=== PATIENT | male | born 1945 | race Caucasian/White ===

== ENCOUNTER 2017-05-22 17:20 | Inpatient (IN) | payer OTHER ==
--- NOTE | ~2017-05-22 | EGD ---
EGD REPORT [facility] [address] [place] [address] NAME: JUVENTINO CORDON : [birth year] STATUS : DIS IN PAT#: [id number] AGE: 71 ADM/REG DATE : 05/22/17 MR#: [id number] REPORT SERV DATE: 05/24/17 DICTATED BY: TEJA VIVAS DATE: 05/24/17 REPORT STATUS : Draft [facility]ANSCRIBED BY: [facility] DATE: 05/24/17 Endoscopy Center Patient Name: Juventino Cordon Date of : 1945 Attending MD: TEJA JIMENEZ MD Procedure Date No Time: 05/24/2017 Procedure: Colonoscopy Indications: Melena, Iron deficiency anemia Referring MD: Juanpablo Andrew Medicines: Monitored Anesthesia Care Complications: No immediate complications. Estimated blood loss: None. Procedure: Pre-Anesthesia Assessment: - ASA Grade Assessment: III - A patient with severe systemic disease. After I obtained informed consent, the scope was passed under direct vision. Throughout the procedure, the patient's blood pressure, pulse, and oxygen saturations were monitored continuously. The CF [id number] was introduced through the anus and advanced to the cecum, identified by appendiceal orifice and ileocecal valve. The colonoscopy was performed without difficulty. The patient tolerated the procedure well. The quality of the bowel preparation was fair. Findings: The perianal and digital rectal examinations were normal. Pertinent negatives include no palpable rectal lesions. Non-bleeding internal hemorrhoids were found during retroflexion and were small. The exam was otherwise without abnormality. Unable to cannulate ileum. No melena seen - only brown stool. Impression: - Non-bleeding internal hemorrhoids. - The examination was otherwise normal with no dark stool or bleeding seen. - Brown stool with no blood seen. Recommendation: - [facility]. - Return to GI clinic in 4 weeks. Procedure Code(s): --- Professional --- 26046, Colonoscopy, flexible, proximal to splenic flexure; diagnostic, with or without collection of specimen(s) by brushing or washing, with or without colon decompression (separate procedure) EGD REPORT [facility] [address] [place], [place] [address]. [address] NAME: JUVENTINO CORDON : [birth year] STATUS : DIS IN PAT#: [id number] AGE: 71 ADM/REG DATE : 05/22/17 MR#: [id number] REPORT SERV DATE: 05/24/17 DICTATED BY: TEJA VIVAS DATE: 05/24/17 REPORT STATUS : Draft TRANSCRIBED BY: [employer] DATE: 05/24/17 Diagnosis Code(s): --- Professional --- K64.8, Other hemorrhoids K92.1, Melena D50.9, Iron deficiency anemia, unspecified CPT copyright 2013 [employer]. All rights reserved. The codes documented in this report are preliminary and upon motorcycle designer review may be revised to meet current compliance requirements. Teja Jimenez MD TEJA JIMENEZ MD 05/24/2017 9:16 AM This report has been signed electronically. Number of Addenda: 0 Note Initiated On: 05/24/2017 8:21 AM Scope Withdrawal Time 0 hours 11 minutes 37 seconds [address] [facility] [place] [address]
--- NOTE | ~2017-05-22 | CN ---
Consultation Report [facility] [address] [place]. [address] NAME: KRYSTLE CORDON : [birth year] STATUS : DIS IN PAT#: [id number] AGE: 71 ADM/REG DATE : 05/22/17 MR#: [id number] REPORT SERV DATE: 05/22/17 DICTATED BY: REJI PEMBERTON DATE: 05/22/17 REPORT STATUS : Draft TRANSCRIBED BY: MODL DATE: 05/22/17 GI CONSULTATION DATE OF CONSULTATION: 05/22/2017 GASTROENTOLOGIST: Ar West M.D. REASON FOR CONSULTATION: Severe anemia. HISTORY AND PHYSICAL: Mr. Cordon is a 71-year-old gentleman who presented to the emergency room because of extreme shortness of breath and chest pain on walking. When he presented here, he had a hemoglobin of 7.9 with hematocrit of 25.5, MCV low at 74.6, and a platelet count of 284,000. INR was 1.2. His BMP showed a BUN of 20 with a creatinine of 1.48. We were consulted because of this reason. On going through his hemoglobin and hematocrit in October of last year, it was 10.9 and 32.7. At that time, he had undergone a GI evaluation by Dr. West and had an EGD and colonoscopy on 11/01/2016. EGD revealed irregular Z-line at 49 cm, small hiatal hernia, couple of nodules without bleeding in the gastric fundus. No obvious site of GI bleeding was found. Colonoscopy was done on the same day which revealed diverticulosis of the sigmoid and hemorrhoids. The patient was seen by Dr. Hess for chest pain and also elevated troponin. He does have a history of coronary artery disease with stents put in, in the past. He tells me that he underwent a cardiac catheterization which showed stent and vessels to be clear but he had what he describes as a leaky valve. He also had an echocardiogram which showed aortic valve to be calcified, there was left ventricular systolic function which appeared low normal at 50%. There was moderate eccentric mitral regurgitation and some jaqa-dv-xovrifre aortic stenosis. I do not have the report of the CAT, but per patient, the vessels and stent were clear. The patient after the endoscopy was suppose to follow up with Dr. West as an outpatient, and I am going through his chart in the office and it appears that there was no office follow up. The patient tells me that he has been having dark stools intermittently on and off for a while now, and he denies use of any iron. HOME MEDICATIONS: Lipitor, Wellbutrin, Coreg, Nexium, Lasix, Aleve, potassium, Aldactone, and Flomax. ALLERGIES: NONE. HABITS: Does not smoke or drink. FAMILY HISTORY: Noncontributory from a GI standpoint. MEDICAL HISTORY: 1. Coronary artery disease. 2. Hypertension. Consultation Report [address] [place]. [address] NAME: KRYSTLE CORDON : [birth year] STATUS : DIS IN PAT#: [id number] AGE: 71 ADM/REG DATE : 05/22/17 MR#: [id number] REPORT SERV DATE: 05/22/17 DICTATED BY: REJI PEMBERTON DATE: 05/22/17 REPORT STATUS : Draft TRANSCRIBED BY: PONCE DATE: 05/22/17 3. Recurrent GI bleed. 4. COPD. 5. History of CHF. PAST SURGICAL HISTORY: Include two back surgeries, left shoulder surgery, and bilateral inguinal hernia repairs. REVIEW OF SYSTEMS: GENERAL: Health described as poor and weak and dizziness. SKIN: Normal. HEENT: Hearing normal. Vision diminished. GI: As mentioned above. CARDIOVASCULAR: Coronary artery disease. PULMONARY: COPD. ENDOCRINE: Negative. NEUROLOGICAL: Weakness. MUSCULOSKELETAL: Arthritis. GENITOURINARY: Negative. PHYSICAL EXAMINATION: GENERAL: He is a fully alert, oriented gentleman in no acute distress other than mild shortness of breath. VITAL SIGNS: Stable. He is afebrile. NECK: Supple without lymphadenopathy, thyromegaly, or carotid bruits. HEENT: Exam is normal. LUNGS: Revealed decreased air entry. No rales or rhonchi. CVS: Normal. ABDOMEN: Benign. LABS: As mentioned above. IMPRESSION: 1. Presents with shortness of breath and chest pain in a person with coronary artery disease, who has anemia. 2. Apparently, per the patient, arteriogram was negative six months ago. 3. Other problems as mentioned. RECOMMENDATIONS: The case was discussed with the patient and with Dr. Almaraz. We will transfuse a unit of packed cells. We will get Cardiology to evaluate. If after the blood he is okay and if Cardiology clears, we will proceed with EGD and colonoscopy on Wednesday. MARLO/PONCE Consultation Report [place] [address] [place]. [address] NAME: KRYSTLE CORDON : [birth year] STATUS : DIS IN PAT#: [id number] AGE: 71 ADM/REG DATE : 05/22/17 MR#: [id number] REPORT SERV DATE: 05/22/17 DICTATED BY: REJI PEMBERTON DATE: 05/22/17 REPORT STATUS : Draft TRANSCRIBED BY: PONCE DATE: 05/22/17 Dana Pemberton M.D. / [id number] CC: MD Juanpablo Ozuna MD Munford Yates III, M.D.
--- NOTE | ~2017-05-22 | EGD ---
EGD REPORT [facility] [address] [place] [address] NAME: JUVENTINO CORDON : 45 STATUS : DIS IN PAT#: [id number] AGE: 71 ADM/REG DATE : 05/22/17 MR#: [id number] REPORT SERV DATE: 05/24/17 DICTATED BY: TEJA JIMENEZ DATE: 05/24/17 REPORT STATUS : Draft TRANSCRIBED BY: [facility] DATE: 05/24/17 Endoscopy Center Patient Name: Juventino Cordon Date of : 1945 Attending MD: TEJA JIMENEZ MD Procedure Date No Time: 05/24/2017 Procedure: Upper GI endoscopy Indications: Iron deficiency anemia, Suspected upper gastrointestinal bleeding in patient with chronic blood loss Referring MD: Juanpablo Andrew Medicines: Monitored Anesthesia Care Complications: No immediate complications. Estimated blood loss: Minimal. Procedure: Pre-Anesthesia Assessment: - ASA Grade Assessment: III - A patient with severe systemic disease. After obtaining informed consent, the endoscope was passed under direct vision. Throughout the procedure, the patient's blood pressure, pulse, and oxygen saturations were monitored continuously. The GIF [id number] was introduced through the mouth, and advanced to the fourth part of duodenum. The upper GI endoscopy was accomplished without difficulty. The patient tolerated the procedure well. Findings: The examined esophagus was normal. The stomach was normal. The examined duodenum was normal. Biopsies were taken with a cold forceps for evaluation of celiac disease. Estimated blood loss was minimal. The cardia and gastric fundus were normal on retroflexion. Impression: - Normal examined duodenum. Biopsied. - Overall normal examination. Recommendation: - Perform a colonoscopy today. Procedure Code(s): --- Professional --- 13584, Esophagogastroduodenoscopy, flexible, transoral; with biopsy, single or multiple Diagnosis Code(s): --- Professional --- D50.9, Iron deficiency anemia, unspecified R58, Hemorrhage, not elsewhere classified EGD REPORT [facility] [address] [place]. [address] NAME: JUVENTINO CORDON : [birth year] STATUS : DIS IN PAT#: [id number] AGE: 71 ADM/REG DATE : 05/22/17 MR#: [id number] REPORT SERV DATE: 05/24/17 DICTATED BY: TEJA JIMENEZ DATE: 05/24/17 REPORT STATUS : Draft TRANSCRIBED BY: [employer] DATE: 05/24/17 CPT copyright 2013 [employer]. All rights reserved. The codes documented in this report are preliminary and upon auto body customizer review may be revised to meet current compliance requirements. Teja Jimenez MD TEJA JIMENEZ MD 05/24/2017 8:40 AM This report has been signed electronically. Number of Addenda: 0 Note Initiated On: 05/24/2017 8:22 AM Scope Withdrawal Time 0 hours 0 minutes 0 seconds [id number] [place] [address]
--- NOTE | ~2017-05-22 | DS ---
Discharge Summary [facility] [address] [facility] [place]. [address] NAME: KRYSTLE CORDON : 45 STATUS : DIS IN PAT#: [id number] AGE: 71 ADM/REG DATE : 05/22/17 MR#: [id number] REPORT SERV DATE: 05/25/17 DICTATED BY: ROSARIO ALVARADO DATE: 05/24/17 REPORT STATUS : Draft TRANSCRIBED BY: PONCE DATE: 05/24/17 ADMISSION DATE: 05/22/2017 DISCHARGE DATE: 05/24/2017 CONSULTATION: 1. Gastroenterology, Dr. Pemberton. 2. Cardiology, Bravo Guardado MD. INVASIVE PROCEDURE: 1. Upper GI endoscopy. Impression:. a. Normal examined duodenum. Biopsied. b. Overall normal examination. c. Recommendation: Perform a colonoscopy today. 2. Colonoscopy. Impression:. a. Nonbleeding internal hemorrhoids. The examination was otherwise normal with no dark stool or bleeding seen. Brown stool with no blood seen. b. Recommendations: [facility] the [facility] to [facility] for [facility] care. Return to GI clinic in 4 weeks. DISCHARGE DIAGNOSES: 1. Melena. 2. Anemia secondary to GI bleed. 3. Dyspnea on exertion. 4. History of coronary artery disease. 5. Status post right coronary artery percutaneous coronary intervention (on 07/10/2016). 6. Mild ischemic cardiomyopathy, ejection fraction 45%. 7. Chronic heart failure with reduced ejection fraction. 8. Moderate mitral regurgitation. 9. Mild to moderate aortic stenosis. 10.Major depression. 11.Hypertension. 12.Chronic obstructive pulmonary disease. 13.History of chronic gastrointestinal bleed. DISCHARGE CONDITION: Stable. HISTORY OF PRESENT ILLNESS: For detailed HPI, please make reference to Dr. Rosa Almaraz's dictation on 05/22/2017. In brief, this is a 71-year-old male with a medical history significant for hypertension; chronic GI bleed; coronary artery disease, status post PCI in 2015; and chronic back pain with history of chronic NSAID use, who presented to the hospital with dyspnea on exertion. The patient reported history of generalized weakness, fatigue, and shortness of breath on exertion. There was associated mild chest pressure like sensation in the midsternal area. It was noted that chest pressure does not occur at rest, only occurs with exertion. In the ER, vital signs were blood pressure was 133/76, temperature was 97, pulse rate was 90, respiratory rate was 20, and saturating 96% on room air. Physical examination was noted for lungs that was clear to auscultation bilaterally. Discharge Summary [place] [address] [place]. [address] NAME: KRYSTLE CORDON : [birth year] STATUS : DIS IN PAT#: [id number] AGE: 71 ADM/REG DATE : 05/22/17 MR#: [id number] REPORT SERV DATE: 05/25/17 DICTATED BY: ROSARIO ALVARADO DATE: 05/24/17 REPORT STATUS : Draft TRANSCRIBED BY: MODL DATE: 05/24/17 Regular rate and rhythm. S1 and S2 with 2/6 systolic murmur. EKG in the ER showed chronic right bundle branch block similar to previous EKG. No acute ST-segment changes. Chest x- ray shows no acute infiltrate or fluid. Laboratory Data: Hemoglobin was 7.9, platelet was 284, INR was 1.4. Creatinine was 1.48, BUN was 20, and sodium was 137. Hemoccult was positive in the ER. An assessment of symptomatic anemia secondary to GI bleed was made in the ER. The patient was admitted to the Hospitalist Service. HOSPITAL COURSE: 1. Melena. Given the presence of positive Hemoccult test in the ER, Gastroenterology was consulted. The patient was started on PPI drip. The patient was transfused 1 unit of blood given evidence of symptomatic anemia. The patient's hemoglobin improved from 7.9 to 8.8. The patient reported complete resolution of dyspnea on exertion posttransfusion. Posttransfusion hemoglobin and hematocrit remained stable between 8.1 and 8.3. The patient had an upper GI endoscopy that showed normal duodenum. No source of bleeding identified. He also underwent a colonoscopy that showed nonbleeding internal hemorrhoids. No definitive source of GI bleed identified on both upper and lower endoscopy. The patient's diet was advanced from clear liquids to regular diet. The patient tolerated regular diet. The patient was advised to follow up with Gastroenterology as an outpatient. The patient is well known to Dr. West. An appointment will be scheduled with Dr. West. The patient to follow up with a possible video enteroscopy as an outpatient. This recommendation was discussed with Dr. Deutsch who performed the endoscopies during this admission. The patient was strongly advised to discontinue atdv-uru-ssbjuor Aleve as this may be contributing to the patient's GI bleed. 2. Dyspnea on exertion secondary to symptomatic anemia. Posttransfusion, the patient's dyspnea was completely resolved. No further heaviness of chest pain. Troponin was less than 0.02. The patient's EKG shows no acute ST-segment elevation. No evidence of ischemia during this admission. The patient did not undergo any invasive cardiology procedure during this admission. The patient was advised to continue home dose of current cardiac medications and follow up with Cardiology as an outpatient. DISCHARGE MEDICATIONS: 1. Lipitor 40 mg p.o. at bedtime. 2. Nexium 20 mg p.o. b.i.d. 3. Iron 325 mg p.o. b.i.d. 4. Coreg 12.5 mg p.o. b.i.d. 5. Wellbutrin 100 mg p.o. daily. 6. Aldactone 25 mg p.o. b.i.d. 7. Flomax 0.4 mg p.o. daily. 8. Lasix 20 mg p.o. daily. FOLLOWUP: 1. Follow up with gastroenterology (Dr. West) within one to two weeks of discharge. 2. Follow up with primary care physician within one to two weeks of discharge. DISCHARGE ACTIVITY: As tolerated. Discharge Summary [address] [address] NAME: KRYSTLE CORDON : [birth year] STATUS : DIS IN PAT#: [id number] AGE: 71 ADM/REG DATE : 05/22/17 MR#: [id number] REPORT SERV DATE: 05/25/17 DICTATED BY: ROSARIO ALVARADO DATE: 05/24/17 REPORT STATUS : Draft TRANSCRIBED BY: PONCE DATE: 05/24/17 DISCHARGE DIET: Regular diet. Greater than 30 minutes were used to prepare this patient's discharge, reconcile medication, and advised the patient on discharge plans and followup. DICTATED BY: MD REJI Ozuna/PONCE Rosario Alvarado MD / [id number] CC: MD Juanpablo Ozuna, MD Teja Deutsch, MD Ar West III, M.D.
--- NOTE | ~2017-05-22 | HP ---
History And Physical [place] [address] [facility] [place]. [address] NAME: KRYSTLE CORDON : [birth year] STATUS : DIS IN PAT#: [id number] AGE: 71 ADM/REG DATE : 05/22/17 MR#: [id number] REPORT SERV DATE: 05/22/17 DICTATED BY: CECE NEVAREZ DATE: 05/22/17 REPORT STATUS : Draft TRANSCRIBED BY: MODTammy DATE: 05/22/17 DATE OF ADMISSION: 05/22/2017 CHIEF COMPLAINT: Exertional chest pressures, pain, with shortness of breath. HISTORY OF PRESENT ILLNESS: This is a 71-year-old male with a past medical history of hypertension; GI bleed; coronary artery disease, status post stent in 2013; history of systolic congestive heart failure; and non-ST elevation VT, for which the patient was recently discharged from the hospital in 10/2016; hypoxic respiratory failure secondary to systolic congestive heart failure exacerbation as well as non-ST elevation VT and also had findings of melena at that time for which the patient had an EGD and colonoscopy by his GI physician Dr. West with findings of diverticulosis and external and internal hemorrhoids but no active bleeding. At that time, it was discussed concerning PillCam, however, that decision was deferred. The patient was to follow up as an outpatient. He did follow up in Dr. West clinic and had blood work done, however, the patient states over the past year, he continues to have intermittent melena. Since his discharge, the patient has gotten generalized more and more weaker with more and more fatigue when easily exerting himself and also shortness of breath and dyspnea on exertion that progressively worsened over the past few weeks, and over the past week, the patient has developed exertional chest pressure like discomfort in the midsternal area while walking but none at rest. The patient does have some neck pain but is unsure if there is any association, and the neck pain is in the posterior area that radiates to the right shoulder. He has no nausea vomiting, but states that his energy is very low which was unlike him. Also, due to financial issues that have come up, the patient has been out of all of his medications for the past week. He presented to [facility] ER with his current complaints, he was seen by nurse practitioner, Kim and signed off by Dr. Wilhelm, ER physician. He had a stool Hemoccult that was brown but positive in a known hemoglobin of 7.9, which has decreased from 10.9 in 10/2016 on his last discharge. The patient states he used to take Aleve but currently has refrained from Aleve. REVIEW OF SYSTEMS: No subjective fever or chills. No headaches. No nausea or vomiting. Positive exertional chest discomfort with dyspnea on exertion and some shortness of breath. No abdominal pain. No diarrhea. No constipation. No lower extremity edema. Please refer to HPI for further details. PAST MEDICAL HISTORY: Hypertension, BPH, COPD, non-ST elevation VT, coronary artery disease with stent placement, the patient states his last stent was in 2013, history of systolic congestive heart failure, however, EF has improved to 50% per last echocardiogram, GERD, GI bleed, AAA, pneumonia, CKD, moderate mitral regurg, and moderate aortic stenoses. PAST SURGICAL HISTORY: Hernia repair, back surgery, left shoulder surgery, and PCI. FAMILY HISTORY: Coronary artery disease, hypertension. SOCIAL HISTORY: Former 60-pack year smoker, quit in 09/2016. No alcohol or illicit drugs. Lived at home alone but does have family. History And Physical [address] [address] NAME: KRYSTLE CORDON : [birth year] STATUS : DIS IN PAT#: [id number] AGE: 71 ADM/REG DATE : 05/22/17 MR#: [id number] REPORT SERV DATE: 05/22/17 DICTATED BY: CECE NEVAREZ DATE: 05/22/17 REPORT STATUS : Draft TRANSCRIBED BY: PONCE DATE: 05/22/17 ALLERGIES: NO KNOWN ALLERGIES. HOME MEDICATIONS: Lipitor 40 mg p.o. at bedtime, Wellbutrin 100 mg p.o. daily, Coreg 12.5 mg p.o. b.i.d., Nexium 20 mg p.o. daily, Lasix 20 mg p.o. with meals, Aleve p.o. p.r.n., potassium chloride 20 mEq p.o. daily, Aldactone 25 mg p.o. b.i.d., Flomax 0.4 mg p.o. daily. ALLERGIES: NO KNOWN ALLERGIES. LABORATORY DATA: Sodium 137, potassium 3.9, chloride 99, bicarb 29, BUN 20, creatinine 1.48 with a glucose of 164, magnesium 1.4. BNP 166.7. White count 9.8, hemoglobin 7.9, platelet count 284, INR 1.4. PHYSICAL EXAMINATION: VITAL SIGNS: Temperature 97, blood pressure 133/76 with a pulse of 90, respiration 20, saturating 96% on room air. GENERAL: The patient is alert and oriented x3, currently in no distress. HEENT: Pupils equal, round, and reactive to light. Extraocular muscles are intact. Moist mucous membranes. CARDIOVASCULAR: S1, S2 with a 2/6 systolic murmur. No rubs or gallops. RESPIRATORY: Clear to auscultation bilaterally. No wheezes or crackles. No signs of tachypnea. ABDOMEN: Positive bowel sounds. Soft, nontender. No rebound. No fluid wave. No distention. EXTREMITIES: 2+ pulse bilaterally. No edema. NEURO: Cranial nerves II through XII grossly intact. Moves all four extremities. No neuro focal deficits. SKIN: No appreciated rash, acute. IMAGING: EKG with chronic right bundle branch block, similar to previous EKG in 10/2016. Q- waves in the inferior leads and some mild ST-depression in anterior leads. No ST elevation. Chest x-ray, no acute infiltrates or fluid. ASSESSMENT AND PLAN: 1. Exertional chest pain. 2. Acute blood loss anemia. 3. History of coronary artery disease/systolic congestive heart failure. 4. Debility. 5. Slow GI bleed. 6. Chronic obstructive pulmonary disease. 7. Chronic kidney disease. The patient will be admitted to telemetry, suspect the patient's exertional chest pain is due to his anemia with coronary artery disease. Hemoglobin should be at 10. We will transfuse 1 unit of packed red blood cells and give a diuretic, also we will check serial troponins as well. Dr. Hess will be consulted, also his GI physician service already has History And Physical [address] [address] NAME: KRYSTLE CORDON : [birth year] STATUS : DIS IN PAT#: [id number] AGE: 71 ADM/REG DATE : 05/22/17 MR#: [id number] REPORT SERV DATE: 05/22/17 DICTATED BY: CECE NEVAREZ DATE: 05/22/17 REPORT STATUS : Draft TRANSCRIBED BY: PONCE DATE: 05/22/17 been consulted by ER staff. The patient will be closely monitored. We will follow up with pending lab work and specialist recommendation, also we will follow with serial troponins. [facility]/PONCE Cece Nevarez M.D. / [id number] CC: MD Erik Canas M.D. Munford Yates III, M.D.
--- NOTE | ~2017-05-22 | CN ---
Consultation Report [facility] [address] [place]. [address] NAME: KRYSTLE CORDON : 45 STATUS : DIS IN PAT#: [id number] AGE: 71 ADM/REG DATE : 05/22/17 MR#: [id number] REPORT SERV DATE: 05/22/17 DICTATED BY: BRAVO PORTER DATE: 05/22/17 REPORT STATUS : Draft TRANSCRIBED BY: MODL DATE: 05/22/17 DATE OF CONSULTATION: 05/22/2017 REASON FOR CONSULTATION: Angina (?) EKG changes. PRIMARY DENTAL EQUIPMENT REPAIRER: Erik Hess M.D. HISTORY OF PRESENT ILLNESS: Mr. Cordon is a very pleasant 71-year-old male with a history of CAD, status post RCA PCI (07/10/2016 demonstrated patent RCA stent and no significant disease otherwise), mild ischemic cardiomyopathy (EF 45%), moderate MR, [id number] , and chronic GI bleed history without definitive etiology to date, who presents with symptoms of chest pains as well as shortness of breath over the past one week. In speaking with him, he states that he was in his usual state of health up until several weeks ago, at which point in time, he ran out of his medications and was unable to refill them due to running out of money. He has been off his medication for the past several weeks and just resumed them about one to two days ago. However, one week ago, he started to become symptomatic with chest pains and pressures, in particular, with exertion. He additionally had dyspnea that occurred with exertion. These symptoms prompted him to present to [facility] for further evaluation and care this evening. He has no other complaints at this time. Of note, the patient has had black stools regularly over the past one year. PAST MEDICAL HISTORY: As above. FAMILY HISTORY: Noncontributory for premature cardiovascular disease. SOCIAL HISTORY: The patient lives by himself and functions fully independently under normal circumstances. He denies drinking alcohol, smoking, or doing drugs. ALLERGIES: NONE. REVIEW OF SYSTEMS: As above, all other systems otherwise negative. MEDICATIONS: 1. Lipitor. 2. Wellbutrin. 3. Coreg. 4. Nexium. 5. Lasix. 6. Aleve. 7. Klor-Con. 8. Aldactone. 9. Tamsulosin. PHYSICAL EXAMINATION: Consultation Report [facility] [address] [place]. [address] NAME: KRYSTLE CORDON : 45 STATUS : DIS IN PAT#: [id number] AGE: 71 ADM/REG DATE : 05/22/17 MR#: [id number] REPORT SERV DATE: 05/22/17 DICTATED BY: BRAVO PORTER DATE: 05/22/17 REPORT STATUS : Draft TRANSCRIBED BY: PONCE DATE: 05/22/17 VITAL SIGNS: BP: 133/76; HR: Pulse 90; Temperature: 97.0. GENERAL: Well developed, well nourished, no acute distress. NEURO: Awake, alert and oriented x3; no focal deficits, appropriate mood. HEENT: Moist mucous membranes, anicteric sclerae, no nasal discharge. NECK: No JVD, no carotid bruit. LUNGS: Clear to auscultation bilaterally, no wheezes, rales or rhonchi. CV: Regular rhythm, normal S1/S2, no murmurs, rubs or gallops. ABD: Soft, non-tender, non-distended, no rebound or guarding. EXT: No pitting edema, normal distal pulses. SKIN: Warm, dry and intact; no rash. PERTINENT TEST FINDINGS: Chest x-ray without acute cardiopulmonary process. Hemoglobin 7.9. Creatinine 1.5. Troponin less than 0.02. BNP 167. EKG from today demonstrates sinus rhythm with a right bundle branch block. Anterior ST-T changes consistent with repolarization. Otherwise, left axis deviation and inferior infarct. Also noted are 1 to [address] depressions anterolaterally, which when compared to previous EKG from October are unchanged and somewhat improved. IMPRESSION AND PLAN: Mr. Cordon is a very pleasant 71-year-old gentleman with a history of coronary artery disease, status post right coronary artery percutaneous coronary intervention with a recent angiography demonstrating patent right coronary artery stent and no obstructive disease, otherwise, and mild ischemic cardiomyopathy, who presents with symptoms of chest pains as well as dyspnea over the past one week in the setting of being off all of his medications as well as being anemic (hemoglobin 7.9) from a chronic gastrointestinal bleed presumably. Accordingly, I recommend proceeding with a comprehensive workup for his gastrointestinal bleed, this has been per report from the patient and issue for him for the past one year with melena regularly over the past year. In addition, I agree with transfusing him with packed red blood cells. He likely has dyspnea and anginal pains as a result of supply ischemia and not coronary syndrome, therefore no specific cardiac clearance is necessary from to proceed with endoscopy for definitive gastrointestinal therapies. Otherwise, I recommend continuing his cardiovascular medications so long as his blood pressure is able to tolerate. It will be fine to hold any anti-platelet agents if necessary per GI during this time. Finally, he appears to be compensated from an ischemic cardiomyopathy perspective, therefore he does not require diureses at this time. We will follow along. THADDEUS/PONCE Bravo Poretr MD / [id number] Consultation Report [address] [address] NAME: KRYSTLE CORDON : 45 STATUS : DIS IN PAT#: [id number] AGE: 71 ADM/REG DATE : 05/22/17 MR#: [id number] REPORT SERV DATE: 05/22/17 DICTATED BY: BRAVO PORTER DATE: 05/22/17 REPORT STATUS : Draft TRANSCRIBED BY: PONCE DATE: 05/22/17 CC: MD Juanpablo Ozuna MD
[2017-05-22 15:45] LABS: BASOPHILS 0.4 %; BASOPHILS ABSOLUTE 0.04 10/3/uL (0.0-0.16); EOSINOPHILS 1.4 %; EOSINOPHILS ABSOLUTE 0.14 10/3/uL (0.0-0.53); HEMATOCRIT 25.5 % (40.0-51.0); HEMOGLOBIN 7.9 g/dL (13.6-17.8); IMMATURE GRANULOCYTES 0.4 %; IMMATURE GRANULOCYTES ABSOLUTE 0.04 10/3/uL (0.0-0.11); LYMPHOCYTES 20.1 %; LYMPHOCYTES ABSOLUTE 1.98 10/3/uL (0.67-4.30); MEAN CORPUSCULAR HEMOGLOB 23.1 pg (26.0-34.0); MEAN CORPUSCULAR VOLUME 74.6 fL (80-100); MEAN PLATELET VOLUME 9.3 fL (9.2-13.0); MONOCYTES 6.9 %; MONOCYTES ABSOLUTE 0.68 10/3/uL (0.21-1.20); NEUTROPHILS 70.8 %; NEUTROPHILS ABSOLUTE 6.95 10/3/uL (2.02-8.40); PLATELET COUNT 284 10/3/uL (150-400); RBC DISTRIBUTION WIDTH 14.8 % (12.0-16.0); RED CELL COUNT 3.42 10/6/uL (4.7-6.1); WHITE BLOOD CELLS 9.8 10/3/uL (4.5-10.5)
[2017-05-22 15:46] LABS: MANUAL DIFF NO %
[2017-05-22 15:53] LABS: INTERNATIONAL NORMAL RATI 1.2 UNITS (-); PARTIAL THROMBO TIME 28.4 SEC (22.5-37.2); PROTIME (NOT ORD) 14.6 SEC (12.0-14.5)
[2017-05-22 16:05] LABS: MACROCYTES 1+ (5-10/OIF) (0-5/OIF); POLYCHROMASIA 2+ (5-10/OIF) (0-1/OIF)
[2017-05-22 16:06] LABS: HYPOCHROMIA 1+ (3-10/OIF) (0-2/OIF); OVALOCYTES 1+ (3-10/OIF) (0-2/OIF); PLATELET ESTIMATE ADQ (ADEQUATE)
[2017-05-22 16:07] LABS: TARGET CELLS OCC (1-2/OIF) (0-1/OIF)
[2017-05-22 16:13] LABS: BUN (BLOOD UREA NITROGEN) 20 MG/DL (6-23); CALCIUM, SERUM 9.1 MG/DL (8.5-10.4); CHEST PAIN PROFILE TAT 0 Hrs 34 Mins; CHLORIDE, SERUM 99 MMOL/L (96-112); CO2 (CARBON DIOXIDE) 29 MMOL/L (24-34); CREATININE 1.48 MG/DL (0.70-1.30); GFR AFRICAN AMERICAN 54 ML/MIN (>=60); GFR NON AFRICAN AMERICAN 47 ML/MIN (>=60); GLUCOSE, SERUM 164 MG/DL (60-99); POTASSIUM, SERUM 3.9 MMOL/L (3.5-5.3); SODIUM, SERUM 137 MMOL/L (135-148); TROPONIN I <0.02 NG/ML (<0.05)
[~2017-05-22 17:20] MED LIST: ALEVE220 MG PO; ASAB PO; CENTRUM PO; COREG12 PO; COREG25 PO; COZ25 PO; COZ50 PO; FLOMAX4 PO; KLOR-CON M2020 MEQ PO; KLOR-CON20 MEQ PO; L20 PO; LIPITOR40 PO; MOBIC15 MG PO; MONODOX100 MG PO; NEXIUM20 M1 PO; SPIRO25 PO; WELL100 PO
[2017-05-22 22:26] LABS: INTERNATIONAL NORMAL RATI 1.2 UNITS (-); PARTIAL THROMBO TIME 28.1 SEC (22.5-37.2); PROTIME (NOT ORD) 14.9 SEC (12.0-14.5)
[2017-05-22 22:36] LABS: CPK 88 U/L (0-200); TROPONIN I 0.02 NG/ML (<0.05)
[2017-05-22 22:37] LABS: CK-MB 1.4 NG/ML
[2017-05-23 05:30] LABS: BASOPHILS 0.5 %; BASOPHILS ABSOLUTE 0.05 10/3/uL (0.0-0.16); EOSINOPHILS 2.2 %; EOSINOPHILS ABSOLUTE 0.23 10/3/uL (0.0-0.53); HEMATOCRIT 26.1 % (40.0-51.0); HEMOGLOBIN 8.3 g/dL (13.6-17.8); IMMATURE GRANULOCYTES 0.5 %; IMMATURE GRANULOCYTES ABSOLUTE 0.05 10/3/uL (0.0-0.11); LYMPHOCYTES ABSOLUTE 2.19 10/3/uL (0.67-4.30); MEAN CORPUS HGB CONC 31.8 g/dL (32.0-36.0); MEAN CORPUSCULAR HEMOGLOB 24.3 pg (26.0-34.0); MEAN CORPUSCULAR VOLUME 76.5 fL (80-100); MEAN PLATELET VOLUME 9.7 fL (9.2-13.0); MONOCYTES ABSOLUTE 0.62 10/3/uL (0.21-1.20); NEUTROPHILS 69.8 %; NEUTROPHILS ABSOLUTE 7.27 10/3/uL (2.02-8.40); PLATELET COUNT 263 10/3/uL (150-400); RED CELL COUNT 3.41 10/6/uL (4.7-6.1); WHITE BLOOD CELLS 10.4 10/3/uL (4.5-10.5)
[2017-05-23 05:36] LABS: MANUAL DIFF NO %
[2017-05-23 05:49] LABS: BUN (BLOOD UREA NITROGEN) 22 MG/DL (6-23); CHLORIDE, SERUM 100 MMOL/L (96-112); CO2 (CARBON DIOXIDE) 28 MMOL/L (24-34); CPK 87 U/L (0-200); CREATININE 1.35 MG/DL (0.70-1.30); GFR AFRICAN AMERICAN 61 ML/MIN (>=60); GFR NON AFRICAN AMERICAN 52 ML/MIN (>=60); GLUCOSE, SERUM 182 MG/DL (60-99); POTASSIUM, SERUM 3.6 MMOL/L (3.5-5.3); SODIUM, SERUM 136 MMOL/L (135-148); TROPONIN I 0.02 NG/ML (<0.05)
[2017-05-23 05:52] LABS: CK-MB 1.8 NG/ML
[2017-05-23 19:02] LABS: HEMOGLOBIN 8.8 g/dL (13.6-17.8)
[2017-05-24 03:23] LABS: BASOPHILS 0.4 %; BASOPHILS ABSOLUTE 0.04 10/3/uL (0.0-0.16); EOSINOPHILS 1.9 %; HEMOGLOBIN 8.1 g/dL (13.6-17.8); IMMATURE GRANULOCYTES 0.5 %; IMMATURE GRANULOCYTES ABSOLUTE 0.05 10/3/uL (0.0-0.11); LYMPHOCYTES 22.6 %; LYMPHOCYTES ABSOLUTE 2.33 10/3/uL (0.67-4.30); MEAN CORPUS HGB CONC 31.3 g/dL (32.0-36.0); MEAN CORPUSCULAR VOLUME 76.6 fL (80-100); MEAN PLATELET VOLUME 9.5 fL (9.2-13.0); MONOCYTES 6.5 %; MONOCYTES ABSOLUTE 0.67 10/3/uL (0.21-1.20); NEUTROPHILS 68.1 %; NEUTROPHILS ABSOLUTE 7.03 10/3/uL (2.02-8.40); PLATELET COUNT 258 10/3/uL (150-400); RBC DISTRIBUTION WIDTH 15.8 % (12.0-16.0); RED CELL COUNT 3.38 10/6/uL (4.7-6.1); WHITE BLOOD CELLS 10.3 10/3/uL (4.5-10.5)
[2017-05-24 03:25] LABS: INTERNATIONAL NORMAL RATI 1.2 UNITS (-); PROTIME (NOT ORD) 14.7 SEC (12.0-14.5)
[2017-05-24 03:26] LABS: HEMATOCRIT 25.9 % (40.0-51.0); MANUAL DIFF NO %
[2017-05-24 03:33] LABS: CALCIUM, SERUM 8.1 MG/DL (8.5-10.4); CHLORIDE, SERUM 104 MMOL/L (96-112); CO2 (CARBON DIOXIDE) 27 MMOL/L (24-34); CREATININE 1.22 MG/DL (0.70-1.30); GFR AFRICAN AMERICAN 69 ML/MIN (>=60); GFR NON AFRICAN AMERICAN 59 ML/MIN (>=60); PHOSPHORUS, SERUM 2.1 MG/DL (2.5-4.5); POTASSIUM, SERUM 3.9 MMOL/L (3.5-5.3); SODIUM, SERUM 139 MMOL/L (135-148)
[2017-05-24 03:36] LABS: BUN (BLOOD UREA NITROGEN) 15 MG/DL (6-23); GLUCOSE, SERUM 142 MG/DL (60-99)
[2017-05-24 12:02] LABS: HEMATOCRIT 28.9 % (40.0-51.0); HEMOGLOBIN 8.8 g/dL (13.6-17.8)
[2017-05-24] MEDS ORDERED: FESO4 PO (13:08)
[2017-05-24] MEDS ORDERED: THERA M PLUS PO (13:09)
== END 2017-05-24 13:46 | disposition home or self-care (01) | DRG 378 ==
LOC: ER 17:20 → 1SO 18:45
PROVIDERS: Hospitalist; Internal Medicine Gastroenterology; Nurse Practitioner; Nurse Practitioner Family
PROC: 30233N1 Transfusion of Nonautologous Red Blood Cells into Peripheral Vein, Percutaneous Approach (ICD-10-PCS; principal; 2017-05-22)
PROC: 0DJD8ZZ Inspection of Lower Intestinal Tract, Via Natural or Artificial Opening Endoscopic (ICD-10-PCS; 2017-05-24)
PROC: 0DB98ZX Excision of Duodenum, Via Natural or Artificial Opening Endoscopic, Diagnostic (ICD-10-PCS; 2017-05-24 08:33)
DX: K92.2 Gastrointestinal hemorrhage, unspecified (principal); D62 Acute posthemorrhagic anemia; I13.0 Hypertensive heart and chronic kidney disease with heart failure and stage 1 through stage 4 chronic kidney disease, or unspecified chronic kidney disease; I50.22 Chronic systolic (congestive) heart failure; J44.9 Chronic obstructive pulmonary disease, unspecified; I71.4 Abdominal aortic aneurysm, without rupture; N18.3 Chronic kidney disease, stage 3 (moderate); N40.0 Benign prostatic hyperplasia without lower urinary tract symptoms; I08.0 Rheumatic disorders of both mitral and aortic valves; K21.9 Gastro-esophageal reflux disease without esophagitis; I25.10 Atherosclerotic heart disease of native coronary artery without angina pectoris; G89.29 Other chronic pain; M54.9 Dorsalgia, unspecified; I45.10 Unspecified right bundle-branch block; F32.9 Major depressive disorder, single episode, unspecified; I25.5 Ischemic cardiomyopathy; K64.8 Other hemorrhoids; K44.9 Diaphragmatic hernia without obstruction or gangrene; Z79.1 Long term (current) use of non-steroidal anti-inflammatories (NSAID); Z79.899 Other long term (current) drug therapy; Z87.891 Personal history of nicotine dependence; I25.2 Old myocardial infarction; Z98.61 Coronary angioplasty status; Z87.01 Personal history of pneumonia (recurrent)
CPT/HCPCS: 36415; 71010; 71020; 80048; 82550; 82553; 83735; 83880; 84100; 84484; 85014; 85018; 85025; 85610; 85730; 86850; 86900; 86901; 86920; 88305; 90471; 93005; 96374; 99285; A9270-GY; C9113; J3475; P9016